=== PATIENT | female | born 1985 | race Caucasian/White ===

== ENCOUNTER 2024-05-24 17:45 | Inpatient (IN) ==
[2024-05-24] MEDS ORDERED: Lidocaine 1% VIAL 10 MG/ML 30 ML VIAL INJ PRN (17:57)
[2024-05-24] MEDS: Lactated Ringers 1000 ml BAG 1,000 ML IV ONE (18:13)
[2024-05-24] MEDS ORDERED: fentaNYL 100 mcg/2 ml 50 MCG/ML VIAL ONE (18:18)
[2024-05-24 18:24] LABS: ABS Lymphocytes 1.7 10^3/uL (1.0-4.8); ABS Monocytes 0.8 10^3/uL (0.0-0.9); ABS Neutrophils 6.8 10^3/uL (1.5-7.6); Eosinophil % 0.1 %; Hematocrit 36.3 % (35-45); Hemoglobin 12.3 g/dL (11.5-14.3); Lymphocyte % 18.4 %; Mean Corpuscular Hemoglobin 32.9 pg (27-33); Mean Corpuscular Hgb Conc 33.8 g/dL (31-36); Mean Corpuscular Volume 97.3 fL (80-97); Mean Platelet Volume 10.4 fL (7.5-11.2); Nucleated Red Blood Cells % 0.1 %/100WBC (0.0-0.8); Platelet Count 201 10^3/uL (150-450); Red Blood Count 3.73 10^6/uL (3.63-4.92); Red Cell Distribution Width 13.6 % (12-17); White Blood Count 9.3 10^3/uL (3.8-11.8)
[2024-05-24] MEDS: OBEPIDURAL (200 ML) 200 ML EPIDURAL ONE (18:53)
[2024-05-24 18:59] LABS: Urine Benzodiazepine Screen None Detected (None Detect); Urine Cannabinoids Screen None Detected (None Detect); Urine Opiates Screen None Detected (None Detect)
[2024-05-24] MEDS ORDERED: Sodium Citrate/Citric Acid LIQ 15 ML UDC PO PRN (19:07)
[2024-05-24] MEDS ORDERED: Phenylephrine 40 mcg/mL 10mL (400mcg) SYRINGE IV PUSH PRN ×2 (19:07)
[2024-05-24] MEDS ORDERED: Glycerin ADULT 2.4 gm SUPP PR PRN (22:54)
[2024-05-24] MEDS ORDERED: Lactated Ringers 1000 ml BAG 1,000 ML IV SCH (23:00)
[2024-05-24] MEDS: Witch Hazel PAD JAR TOPICAL PRN (23:23)
[2024-05-24] MEDS: Dibucaine 1% OINT 28.35 GM TUBE PR PRN (23:23)
[2024-05-24] MEDS: Oxytocin in LR 20,000 MILLI.UNIT/1,000 ML BAG IV ONE (23:49)
[2024-05-25 06:41] LABS: ABS Basophils 0.1 10^3/uL (0.0-0.1); ABS Eosinophils 0.1 10^3/uL (0.0-0.5); ABS Lymphocytes 2.6 10^3/uL (1.0-4.8); ABS Monocytes 1.5 10^3/uL (0.0-0.9); ABS Neutrophils 10.5 10^3/uL (1.5-7.6); Eosinophil % 0.7 %; Hematocrit 34.4 % (35-45); Lymphocyte % 17.8 %; Mean Corpuscular Hemoglobin 33.7 pg (27-33); Mean Corpuscular Hgb Conc 34.7 g/dL (31-36); Mean Corpuscular Volume 97.3 fL (80-97); Mean Platelet Volume 10.3 fL (7.5-11.2); Platelet Count 184 10^3/uL (150-450); Red Blood Count 3.54 10^6/uL (3.63-4.92); Red Cell Distribution Width 13.6 % (12-17); White Blood Count 14.7 10^3/uL (3.8-11.8)
[2024-05-25] MEDS: Lactated Ringers 1000 ml BAG 1,000 ML IV ONE (07:45)
[2024-05-25] MEDS: Lidocaine 1.5% EPI 1:200,000 30 ML SDV ONE (07:45)
[2024-05-25] MEDS: Lactated Ringers 1000 ml BAG 1,000 ML IV SCH (07:46)
[2024-05-25] MEDS: OBEPIDURAL (200 ML) 200 ML EPIDURAL SCH (07:46)
[2024-05-25] MEDS: Oxytocin in LR 20,000 MILLI.UNIT/1,000 ML BAG IV SCH (07:46)
== END 2024-05-26 18:30 | disposition home or self-care (01) | DRG 807 ==
LOC: MCHOBOUT 17:45 → MCHOB 17:55
PROVIDERS: ADMIT Midwife; ATTEND Midwife